=== PATIENT | female | born 1985 | race Caucasian/White ===

== ENCOUNTER 2020-04-28 13:30 | Emergency (ER) | payer OTHER ==
[~2020-04-28] VITALS: Ht 165.1 cm; Wt 84.1 kg
[2020-04-28] MEDS ORDERED: PRAZ1 PO (13:40)
[2020-04-28] MEDS ORDERED: QUET100T PO (13:40)
[2020-04-28 14:43] VITALS: BP 128/74
== END 2020-04-28 14:51 | disposition home or self-care (01) ==
LOC: EMS 13:42
DX: L03.311 Cellulitis of abdominal wall (principal); J45.909 Unspecified asthma, uncomplicated; F17.210 Nicotine dependence, cigarettes, uncomplicated; Z88.8 Allergy status to other drugs, medicaments and biological substances
CPT/HCPCS: 99283; Z7502